=== PATIENT | male | born 1970 | race Caucasian/White ===

== ENCOUNTER 2016-08-16 19:57 | Emergency (ER) | payer BC ==
[~2016-08-16] VITALS: Ht 182.9 cm; Wt 87.2 kg
--- OUTSIDE RECORDS SUMMARY | 2016-08-16 20:02 | XMS REPORT ---
Author Author Xuan Sauceda Organization [employer] Address Unknown Phone Unavailable Care Team Providers Care Kindergarten Instructional Assistant Name Role Phone Xuan Sauceda CP Unavailable Allergies No Known Allergies Problems No Known Problems Medications No Known Medications Results No Known Results Summary Purpose [employer] Submission
[2016-08-16 20:47] VITALS: BP 144/94
== END 2016-08-16 20:47 | disposition home or self-care (01) ==
LOC: ED 20:00
DX: S61.212A Laceration without foreign body of right middle finger without damage to nail, initial encounter (principal); W22.09XA Striking against other stationary object, initial encounter; Y92.009 Unspecified place in unspecified non-institutional (private) residence as the place of occurrence of the external cause
CPT/HCPCS: 99281; 99283